=== PATIENT | male | born 1965 | race Caucasian/White ===

== ENCOUNTER 2020-11-10 09:34 | Outpatient (REF) | payer OTHER, SELFPAY | END 2020-11-10 09:35 | disposition home or self-care (01) | LOC: HO.LAB 09:34 | PROVIDERS: Visit Provider Internal Medicine | DX: Z20.822 Contact with and (suspected) exposure to COVID-19 (principal) | CPT/HCPCS: C9803; U0003; U0005 ==

== ENCOUNTER 2023-04-12 08:48 | Outpatient (REF) | payer SELFPAY ==
[2023-04-13 11:29] LABS: Free Prostate Spec Ag 0.5 ng/mL; Percent Free Prostate Spec Ag 38 % (calc) (>25); Prostate Specific Ag Total 1.3 ng/mL (< OR = 4.0)
[2023-04-13 23:54] LABS: Trichomonas vag. RNA Ur Male NOT DETECTED (NOT DETECTED)
== END 2023-04-12 08:49 | disposition home or self-care (01) ==
LOC: HO.HHCL 08:48
PROVIDERS: Visit Provider Internal Medicine
DX: Z12.5 Encounter for screening for malignant neoplasm of prostate (principal); R39.9 Unspecified symptoms and signs involving the genitourinary system
CPT/HCPCS: 36415; 84154; 87086; 87661

== ENCOUNTER 2023-04-18 11:50 | Outpatient (REF) | payer OTHER, SELFPAY ==
[2023-04-18 13:16] LABS: MANUAL DIFF FLAG NO
[2023-04-18 13:19] LABS: Basophils Percent Auto 0.5 % (0-2); Eosinophils Absolute Auto 0.1 X10*3/uL (0.0-0.4); Eosinophils Percent Auto 0.9 % (0-4); Hematocrit 47.6 % (42.0-52.0); Hemoglobin 15.8 g/dl (14.0-18.0); Imm Gran Abs Auto 0.01 X10*3/uL (0.00-0.03); Imm Gran Pct Auto 0.2 % (0.0-0.4); Lymphocytes Absolute Auto 2.2 X10*3/uL (1.2-4.9); Lymphocytes Percent Auto 33.1 % (20-40); Mean Corpuscular HGB Conc 33.2 g/dl (31.0-36.0); Mean Corpuscular Hemoglobin 28.5 pg (27.0-33.0); Mean Corpuscular Volume 85.9 fL (80.0-98.0); Mean Platelet Volume 9.7 fL (9.4-12.4); Monocytes Absolute Auto 0.7 X10*3/uL (0.1-1.2); Monocytes Percent Auto 10.8 % (2-11); Neutrophils Absolute Auto 3.6 x10*3/uL (2.0-8.3); Neutrophils Percent Auto 54.5 % (45-73); Platelet Count 237 X10*3/uL (160-400); Red Blood Count 5.54 X10*6/uL (4.60-5.80); White Blood Count 6.7 X10*3/uL (4.8-10.8)
[2023-04-18 14:27] LABS: Anion Gap 11 (12-20); Blood Urea Nitrogen 16 mg/dL (9-16); Calcium 10.4 mg/dL (8.4-10.2); Carbon Dioxide 29 mmol/L (22-29); Chloride 104 mmol/L (96-108); Estimated Glomerular Filt Rate > 60; Glucose Random 86 mg/dL (60-115); Magnesium 2.1 mg/dL (1.6-2.6); Sodium 140 mmol/L (135-145)
[2023-04-18 14:50] LABS: Vitamin B12 470 pg/mL (200-900)
== END 2023-04-18 11:51 | disposition home or self-care (01) ==
LOC: HO.HHCL 11:50
PROVIDERS: Visit Provider Nurse Practitioner Primary Care
DX: R20.0 Anesthesia of skin (principal); R25.2 Cramp and spasm
CPT/HCPCS: 36415; 80048; 82607; 83735; 85025

== ENCOUNTER 2023-07-04 15:12 | Outpatient (REF) | payer OTHER, SELFPAY ==
[2023-07-04 16:27] LABS: Anion Gap 12 (12-20); Blood Urea Nitrogen 12 mg/dL (9-16); Carbon Dioxide 29 mmol/L (22-29); Chloride 101 mmol/L (96-108); Estimated Glomerular Filt Rate > 60; Glucose Random 88 mg/dL (60-115); Potassium 3.8 mmol/L (3.3-5.1); Sodium 138 mmol/L (135-145)
== END 2023-07-04 15:13 | disposition home or self-care (01) ==
LOC: HO.HHCL 15:12
PROVIDERS: Visit Provider Nurse Practitioner Primary Care
DX: E83.52 Hypercalcemia (principal)
CPT/HCPCS: 36415; 80048

== ENCOUNTER 2023-07-12 13:45 | Outpatient (AMB) | payer OTHER, SELFPAY ==
--- NOTE | 2023-07-12 14:09 | MHC.OFFVIS ---
Intake Vital Signs 07/12/23 14:19 Height 5 ft 4 in Weight 181 lb BMI 31.1 Intake Visit Reasons: N/P B/L knee pain Intake Note: Angelo is a 58 year old male who presents today as a new patient for a evaluation of his bilateral knee pain, last inj 05/30/19. No hx of injury. Patient reports ongoing pain for many of years. He states that he finds relief with getting the cortisone injections. His last injections gave him about 2 years of relief. Pain is worse on the left knee than the right. He expresses that the pain is worse when he is using the stairs, kneeling down. Allergies lisinopril [LISINOPRIL] Allergy (Unknown, Verified 07/12/23 14:15) ANGIOEDEMA From TUBERCULIN PPD ANGELA TEST Allergy (Unknown, Uncoded 12/13/19 16:27) UNKNOWN HPI N/P B/L knee pain HPI Details 58-year-old male who presents in the office today, as a new patient, for an evaluation of bilateral knee pain. Patient has cortisone injections in 05/30/2019, which gave him relief for about 2 years. Denies any known injury. He reports ongoing pain for many years. He states the pain is worse in the left knee than the right. He reports increased pain with stairs and kneeling down. [facility], [facility] Social History (Updated 07/12/23 @ 14:18 by Marian Avila) Alcohol intake: never Patient Tobacco Use Status: Never used Tobacco Current occupational status: employed Current occupation: automobile mechanic supervisor Review of Systems Const All systems reviewed & are unremarkable except as noted in HPI and below Physical Exam Vital Signs: BMI result Body Mass Index 31.1 Const General: cooperative, healthy appearing and no acute distress Resp Effort & Inspection: normal respiratory effort and able to speak in complete sentences Cardio Rate: regular rate Peripheral pulses: Peripheral pulses 2+ throughout GI Palpation (GI): Soft to palpation Skin Lesions: no lesions Rashes: no rashes Extrem Other: Bilateral knees: Normal to inspection. No ecchymosis, erythema, or joint effusion. No tenderness to palpation along the medial or lateral joint lines. Full knee extension and flexion. Crepitus felt with ROM. NVI. Office Procedures Joint Injection/Drain Joint Injection/Drain Primary Site: right knee Secondary Site: left knee Prep: site was prepped using aseptic technique, ethochloride spray was applied and injection warnings given Injected: 80 mg of, DepoMedrol, with 8 mL of (2% plain lido ) and in the joint Approach Used: anterolateral Procedure: The patient tolerated the procedure well, but had some pain with the injection and there was some relief with the local anesthesia Coding - Large joint Procedure code (CPT) selection complete Assessment & Plan Assessment & Plan (1) Patellofemoral arthritis of right knee: Code(s): M17.11 - Unilateral primary osteoarthritis, right knee (2) Patellofemoral arthritis of left knee: Code(s): M17.12 - Unilateral primary osteoarthritis, left knee Plan Mr. Dhaliwal is a 58-year-old male who presents in the office today, as a new patient, for an evaluation of bilateral knee pain. Patient has cortisone injections in 05/30/2019, which gave him relief for about 2 years. Denies any known injury. He reports ongoing pain for many years. He states the pain is worse in the left knee than the right. He reports increased pain with stairs and kneeling. The patient was offered a cortisone injection in the bilateral knees with 80 mg of DepoMedrol. The patient was explained the risk, benefits, and alternatives to receiving this injection. After receiving consent for the injection, the patient had the procedure done while in the office today. The patient tolerated the procedure well with no complications. The patient has had relief with the injections in the past. He does not have a history of diabetes mellitus. Follow up will be PRN, or sooner if needed. X-rays of the bilateral knees which were obtained while in the office today and were reviewed by me, Vidhi Lugo PA-C, revealed patellofemoral arthritis, bilaterally. Orders: Orders XR knee standing BI Today M25.569 - Pain in unspecified knee Patient Instructions: Scribed by Yuki Purcell medical records coder, for Vidhi Lugo PA-C on 07/12/2023 at 1:54 pm, EST. Coding Level of Care Code New Pt Level 4 (21168) Diagnoses Patellofemoral arthritis of right knee M17.11 Patellofemoral arthritis of left knee M17.12 CPT Codes Coding - Large joint: 63719 - Large joint ([id number])
[2023-07-12 14:19] VITALS: BMI 31.1
== END 2023-07-12 14:57 | disposition home or self-care (01) ==
PROVIDERS: Visit Provider Physician Assistant
DX: M17.0 Bilateral primary osteoarthritis of knee (principal)
CPT/HCPCS: 20610; 99204

== ENCOUNTER 2023-07-12 14:58 | Outpatient (REF) | payer OTHER, SELFPAY ==
--- NOTE | ~2023-07-12 | XR_ITS ---
EXAMINATION: XR AP STANDING BILATERAL KNEES CLINICAL INFORMATION: Pain in unspecified knee. TECHNIQUE: AP standing, lateral and sunrise views of each knee. COMPARISON: Right knee 05/24/2019. Bilateral knees 08/17/2016. FINDINGS: RIGHT KNEE: Compartment spaces are maintained. Trace joint effusion. Tiny posterior patellar osteophytes. LEFT KNEE: Trace joint effusion. Compartment spaces are preserved. Tiny posterior patellar osteophytes. XR/XR knee LT 3V IMPRESSION: Mild degenerative changes in the bilateral knees.
--- NOTE | ~2023-07-12 | XR_ITS ---
EXAMINATION: XR AP STANDING BILATERAL KNEES CLINICAL INFORMATION: Pain in unspecified knee. TECHNIQUE: AP standing, lateral and sunrise views of each knee. COMPARISON: Right knee 05/24/2019. Bilateral knees 08/17/2016. FINDINGS: RIGHT KNEE: Compartment spaces are maintained. Trace joint effusion. Tiny posterior patellar osteophytes. LEFT KNEE: Trace joint effusion. Compartment spaces are preserved. Tiny posterior patellar osteophytes. XR/XR knee RT 3V IMPRESSION: Mild degenerative changes in the bilateral knees.
== END 2023-07-12 14:59 | disposition home or self-care (01) ==
LOC: HO.HOSX 14:58
PROVIDERS: Visit Provider Physician Assistant
DX: M17.0 Bilateral primary osteoarthritis of knee (principal)
CPT/HCPCS: 20610; 73562; J1010; J1040

== ENCOUNTER 2024-03-26 14:52 | Outpatient (REF) | payer OTHER, SELFPAY ==
--- NOTE | ~2024-03-26 | XR_ITS ---
CLINICAL HISTORY: Chronic low back pain 5 views lumbar spine Comparison: None Findings: Normal vertebral body alignment. No acute fractures or dislocation. There is multiple level degenerative disc and facet change. IMPRESSION: No acute findings. This document has been electronically signed by: Arnaud Damico MD on 03/30/2024 18:52:45
--- NOTE | ~2024-03-26 | XR_ITS ---
CLINICAL HISTORY: M25.569 - Pain in unspecified knee 1 view bilateral knee Comparison: None Findings: No fractures or dislocations. No significant loss of joint space, osteophytes, or erosions. No joint effusion. No radiopaque foreign body. IMPRESSION: 1. No acute findings. This document has been electronically signed by: Arnaud Damico MD on 03/30/2024 17:44:15
== END 2024-03-26 14:53 | disposition home or self-care (01) ==
LOC: HO.XRAY 14:52
PROVIDERS: PCP Nurse Practitioner Primary Care; Visit Provider Internal Medicine Geriatric Medicine
DX: M25.569 Pain in unspecified knee (principal); M54.42 Lumbago with sciatica, left side; G89.29 Other chronic pain
CPT/HCPCS: 72110; 73565

== ENCOUNTER → 2024-03-26 14:57 | Outpatient (BNV) | payer OTHER, SELFPAY | PROVIDERS: PCP Nurse Practitioner Primary Care; Visit Provider Specialist | DX: M54.42 Lumbago with sciatica, left side (principal); M25.562 Pain in left knee; M25.561 Pain in right knee | CPT/HCPCS: 72110; 73565 ==

== ENCOUNTER 2024-08-13 09:31 | Outpatient (REF) | payer OTHER, SELFPAY ==
--- OUTSIDE RECORDS SUMMARY | 2024-08-13 09:50 | XMS_ITS | Encounter Summary ---
Author Organization [email or web address] Address [address] [place] [address] Care Team Providers Care It Risk And Assurance Senior Manager Name Role Phone Jamila Conrad Primary Care Provider [phone] Reason for Visit * Reason Comments Med Refill Encounter Details Date Type Department Care Team ([facility] st Contact Info) Description 09/21/2023 Refill [facility] [address] [place], [place] [id number] Jamila Conrad ANP [address] [place] [address] Essential hypertension Social History Tobacco Use Types Packs/Day Years Used Date Smoking Tobacco: Never Passive Smoke Exposure: Never Smokeless Tobacco: Never Alcohol Use Standard Drinks/Week Comments Never 0 (1 standard drink = 0.6 oz pur e alcohol) Depression Answer Date Recorded Patient Health Questionnaire-9 Score 0 07/20/2022 Housing Stability Answer Date Recorded What is your housing situation today? I have [place] 01/20/[address] you li ve. Do you have problems with any of the following? None of the above 01/20/2023 Food Insecurity Answer Date Recorded Within the past 12 months, y ou worried that your food would run out before you got money to buy more: Never True 01/20/2023 Within the past 12 months,th e food you bought just didn't last and you didn't have enough money to get more: Never True Transportation Answer Date Recorded In the past 12 months, has l ack of transportation kept you from medical appts, meetings, work or from getting things needed for daily living? No 01/20/2023 Utilities Answer Date Recorded In the past 12 months, has t he electric, gas, oil or water company threatened to shut off services in your home? No 01/20/2023 Depression Answer Date Recorded Patient Health Questionnaire-2 Score 0 07/20/2022 Sex and Gender Information Value Date Recorded Sex Assigned at Male 01/25/2022 10:14 AM EDT Legal Sex Male 10:14 AM EDT Gender Identity Male 01/25/2022 10:14 AM EDT Sexual Orientation Straight 01/25/2022 10 :14 AM EDT documented as of this encounter Plan of Treatment Upcoming Encounters Date Type Department Care Team (Late st Contact Info) Description 09/26/2024 3:00 PM EDT Office Visit [facility] [address] [place] [address] Jamila Conrad ANP [address] [place] [address] 10/23/2024 3:00 PM EDT Office Visit [facility] [address] [place] [address] Axel, Maria Isabel, OD [address] [place] [address] 12/12/2024 3:00 PM EDT Office Visit [facility] [address] [place] [address] Elizabet Guido documented as of this encounter Visit Diagnoses Diagnosis Essential hypertension Unspecified essential hypertension documented in this encounter Additional Health Concerns Assessment Noted Time PHQ-9 Depression Total Score: 0 07/21/19 23 1:42 PM EDT documented as of this encounter Care Teams It Risk And Assurance Senior Manager Relationship Specialty Start Date End Date Jamila Conrad ANP [address] [place] [address] PCP - General Family Medicine 11/18/20 documented as of this encounter
--- OUTSIDE RECORDS SUMMARY | 2024-08-13 09:50 | XMS_ITS | Encounter Summary ---
Author Organization [employer] Address [address] [place] [address] Care Team Providers Care Post Secondary Professional Name Role Phone Jamila Conrad Primary Care Provider [phone] Encounter Details Date Type Department Care Team (Latest Contact Info) Description 10/17/2020 Abstract [facility] Dental, Provider, DDS Social History Tobacco Use Types Packs/Day Years Used Date Smoking Tobacco: Never Assessed Sex and Gender Information Value Date Recorded Sex Assigned at Male 01/25/2022 10:14 AM EDT Legal Sex Male 10:14 AM EDT Gender Identity Male 01/25/2022 10:14 AM EDT Sexual Orientation Straight 01/25/2022 10 :14 AM EDT documented as of this encounter Plan of Treatment Upcoming Encounters Date Type Department Care Team (Late st Contact Info) Description 09/26/2024 3:00 PM EDT Office Visit [facility] [address] [place] [address] Jamila Conrad, ANP [address] [place] [address] 10/23/2024 3:00 PM EDT Office Visit [facility] [address] [place] [address] Maria Isabel Reyna, OD [address] [place] [address] 12/12/2024 3:00 PM EDT Office Visit [facility] [address] [place] [address] Elizabet Guido documented as of this encounter Visit Diagnoses Not on filedocumented in this encounter Care Teams Post Secondary Professional Relationship Specialty Start Date End Date Jamila Conrad ANP [address] [place] [address] PCP - General Family Medicine 11/18/20 documented as of this encounter
--- OUTSIDE RECORDS SUMMARY | 2024-08-13 09:50 | XMS_ITS | Encounter Summary ---
Author Organization [employer] Address [address] [place] [address] Care Team Providers Care Director Of Consumer Marketing Name Role Phone Jamila Conrad Primary Care Provider [phone] Reason for Visit * Reason Onset Date Comments clarification needed 06/27/2024 Encounter Details Date Type Department Care Team ([facility] Contact Info) Description 06/27/2024 Telephone [facility] [address] [place] [address] Jamila Conrad ANP [address] [place] [address] clarification needed Social History Tobacco Use Types Packs/Day Years Used Date Smoking Tobacco: Never Passive Smoke Exposure: Never Smokeless Tobacco: Never Alcohol Use Standard Drinks/Week Comments Never 0 (1 standard drink = 0.6 oz pur e alcohol) Depression Answer Date Recorded Patient Health Questionnaire-9 Score 3 05/31/2024 Patient Health Questionnaire-9 Score 3 05/31/2024 Last PHQ-9: Questionnaire Data Not on file 0 05/31/2024 Housing Stability Answer Date Recorded What is [...] Date Recorded Patient Health Questionnaire-2 Score 0 05/31/2024 Internet Access Answer Date Recorded Internet Access Q1 Yes 11/28/2023 Internet Access Q2 Not on file 11/28/2023 Sex and Gender Information Value Date Recorded Sex Assigned at Male 01/25/2022 10:14 AM EDT Legal Sex Male 10:14 AM EDT Gender Identity Male 01/25/2022 10:14 AM EDT Sexual Orientation Straight 01/25/2022 10 :14 AM EDT documented as of this encounter Miscellaneous Notes * Telephone Encounter - Austin Foster - 06/29/2024 9:58 AM EDT TC from [employer] reports received Two sleep study Prior auth with 2 different CPT codes. Caller inform they would like clarification on which CPT code will be used. PLEASE return call [phone] * Telephone Encounter - Waldo Howard - 06/27/2024 4:33 PM EDT TC from [employer] reports received two sleep study Prior auth with two different CPT codes. Would like clarification on which CPT code you would like to use. Ticket number : [id number] documented in this encounter Plan of Treatment Upcoming Encounters Date Type Department Care Team (Late st Contact Info) Description 09/26/2024 3:00 PM EDT Office Visit [facility] [address] [place] [address] Jamila Conrad ANP [address] [place] [address] 10/23/2024 3:00 PM EDT Office Visit [facility] [address] [place] [address] Axel, Maria Isabel, OD [address] [place] [address] 12/12/2024 3:00 PM EDT Office Visit [facility] [address] [place] [address] Elizabet Guido documented as of this encounter Visit Diagnoses Not on filedocumented in this encounter Additional Health Concerns Assessment Noted Time PHQ-9 Depression Total Score: 3 06/01/19 25 2:47 PM EST documented as of this encounter Care Teams Director Of Consumer Marketing Relationship Specialty Start Date End Date Jamila Conrad ANP [address] [place] [address] PCP - General Family Medicine 11/18/20 documented as of this encounter
--- OUTSIDE RECORDS SUMMARY | 2024-08-13 09:51 | XMS_ITS | Clinical Summary ---
Author Organization [employer] Address [address] [place] [address] Care Team Providers Care Diamond Powder Technician Name Role Phone Jamila Conrad JESSEE Primary Care Provider [phone] Allergies Active Allergy Reactions Criticality Noted Date Comments Lisinopril Angioedema High 03/30/2013 Medications atorvastatin (Lipitor) 40 MG tablet Take 1 tablet by mouth 1 (one) time each day. 022 Active Loratadine 10 MG capsule Take 1 capsule by mouth if needed each day. 022 Active sodium chloride ([place]) 0.65 % nasal spray 1-2 spray on each nostril every 2-3 hours as needed for nasal congestion 022 Active Blood Pressure Monitoring (Blood Pressure Monitor/L Cuff) [facility] check blood pressure once daily 014 Active fluticasone (Flonase) 50 MCG/ACT nasal sprayIndications:Non-s easonal allergic rhinitis, unspecified trigger Administer 2 sprays into each nostril if needed each day for allergies or rhinitis. 16 g 2 024 Active hydroCHLOROthiazide (HYDRODiuril) 25 MG tabletIndications:Esse ntial hypertension TAKE 1 TABLET BY MOUTH EVERY DAY IN THE MORNING 90 tablet 2 024 Active cholecalciferol VITAMIN D (Vitamin D-3) 50 MCG (1999) capsule TAKE 1 CAPSULE BY MOUTH EVERY DAY 90 capsule 1 024 Active amLODIPine (Norvasc) 5 MG tabletIndications:Esse ntial hypertension TAKE 1 TABLET BY MOUTH EVERY DAY 90 tablet 2 024 Active Aspirin Low Dose 81 MG EC tabletIndications:Mixe d hypercholesterolemia and hypertriglyceridemia TAKE 1 TABLET BY MOUTH EVERY DAY 90 tablet 1 025 Active lidocaine (Lidoderm) 5 % patch PLACE 1 PATCH TO SKIN ONCE DAILY AND WEAR FOR UP TO 12 HOURS 30 patch 1 025 Active celecoxib (CeleBREX) 100 MG capsuleIndications:Chr onic midline low back pain with left-sided sciatica TAKE 2 CAPSULES ONCE AND THEN 1 CAPSULE TWICE A DAY NEEDED FOR BACK PAIN 60 capsule 025 Active celecoxib (CeleBREX) 100 MG capsuleIndications:Chr onic midline low back pain with left-sided sciatica TAKE 2 CAPSULES ONCE AND THEN 1 CAPSULE TWICE A DAY NEEDED FOR BACK PAIN 60 capsule 025 08/06 Discontinued Active Problems Problem Noted Date Diagnosed Date Aphthous ulcer 05/01/2024 Oral lesion 10/24/2023 Dental abscess 09/28/2023 Periodontal disease 02/01/2023 Dental calculus 02/01/2023 Missing teeth, acquired 02/01/2023 Generalized gingival recession, moderate 023 Seasonal allergies 01/20/2023 01/20/2023 Mixed anxiety and depressive disorder 07/20/2022 Chronic midline low back pain with left-sided sc iatica 07/20/2022 Overview (01/21/2023): Radiating to upper back and sometimes to left leg. Lidocaine patches not approved by insurance, will request PA. Accepts PT referral Heat, stretching Naproxen 500mg PRN, monitor BP, take w/ food Cyclobenzaprine 5mg PRN up to TID Mixed hypercholesterolemia and hypertriglyceride kamilla 03/23/2022 Overview (01/21/2023): Atorvastatin 40mg ASA 81mg Lifestyle recommendations to improve heart health & lower cholesterol: be as active as able, ideally exercise 150min moderate intensity or 75min vigorous intensity weekly; increase intake of vegetables, fruits, whole grains, fish. Try to minimize intake of sugary or greasy food and drink. Use olive oil or vegetable, peanut, canola, or similar oil for cooking. Decrease or stop drinking alcohol if you drink, quit/decrease smoking if you smoke. Seasonal allergic rhinitis 08/25/2017 Allergic conjunctivitis 08/25/2017 01/21/20 23 Pharyngitis 08/25/2017 01/20/2023 Benign prostatic hyperplasia 01/12/2012 Overview (01/21/2023): PSA 0.Apr Elevated uric acid in blood 01/12/2012 Essential hypertension 01/12/2012 Overview (01/21/2023): Amlodipine 5mg daily hydrochlorothiazide 25mg daily Low salt diet, regular exercise Call clinic if BP is frequently >150/90 Go to ED/call 911 if > 170/100 and having sx such as FONG, visual changes, chest pain, SOB Last renal function: Lab Results Component Value Date GLUCOSE 96 05/10/2022 NA 139 05/10/2022 K 4.1 05/10/2022 CO2 33 (H) 05/10/2022 CL 100 05/10/2022 BUN 12 05/10/2022 CREATININE 1.04 05/10/2022 05/10/22 Alb:Cr 2 [place]: positive 01/12/2012 01/20/2023 Obesity 01/12/2012 01/20/2023 Encounters Date Type Department Care Team Description 08/04/2024 [facility] [place] [address] Jamila Conrad ANP Chronic midline low back pain with left-sided sciatica 07/18/2024 Telephone [facility] [place] [address] Jamila Conrad ANP Call Back Request 07/06/2024 [facility] [place] [address] Jamila Conrad ANP Chronic midline low back pain with left-sided sciatica 07/05/2024 Telephone [facility] [place] [address] Jamila Conrad ANP September recall 06/27/2024 Telephone [facility] [place] [address] Jamila Conrad ANP clarification needed 05/31/2024 2:00 PM EST Office [facility] [place] [address] Jamila Conrad ANP Chronic midline low back pain with left-sided sciatica (Primary Dx); Witnessed episode of apnea; Sleep disturbance; Essential hypertension 05/31/2024 Travel 05/26/2024 Refill [facility] [address] [place] [address] Jamila Conrad ANP 05/22/2024 Patient Outreach [facility] [address] [place], [place] [phone] Jamila Conrad ANP Pre-visit Planning (SDOH Screening negative and Tobacco screening negative) 05/19/2024 Refill [facility] [address] [place] [address] Jamila Conrad ANP Mixed hypercholesterolemia and hypertriglyceridemia from Last 3 Months Immunizations Immunization Administration Dates Next Due Hep B, adult 02/11/2011,06/16/2010,05/01/2010 Influenza Injectable Quadriv alant Preservative Free IIV4 MDCK 12/12/2021,01/06/2019,12/11/2017 Influenza injectable quadriv alent IIV4 with preservative 06/17/2016,01/06/2015 Influenza injectable quadriv alent preservative free 01/21/2023,12/09/2020,12/15/2019,2016 Influenza, IIV3, injectable 02/11/2011 Influenza, Injectable, MDCK, preservative free 12/03/2023 Moderna Covid-19 Vaccine 6+ Bivalent 07/20/2022 TD (adult), 2 Lf tetanus tox oid, preservative free, adsorbed 03/12/1996 Tdap 07/04/2023 Zoster, Recombinant 06/11/2023,03/12/2023 Family History Medical History Relation Name Comments Heart disease Brother Hypertension Brother Prostate cancer Father Prostate cancer Father's Brother Relation Name Status Comments Brother Father Father's Brother Social History Tobacco Use Types Packs/Day Years Used Date Smoking Tobacco: Never Passive Smoke Exposure: Never Smokeless Tobacco: Never Tobacco Cessation:Counseling Given: Not Answered Alcohol Use Standard Drinks/Week Comments Never 0 [...] Orientation Straight 01/25/2022 10 :14 AM EDT Last Filed Vital Signs Vital Sign Reading Time Taken Comments Blood Pressure 133/89 05/31/2024 2:08 PM EST Pulse 91 05/31/2024 2:08 PM EST Temperature 36.9 ??C (98.4 ??F) 05/31/2024 2:08 PM ES T Respiratory Rate 20 05/31/2024 2:08 PM EST Oxygen Saturation 98% 05/31/2024 2:08 PM EST Inhaled Oxygen Concentration - - Weight 83.9 kg (185 lb) 05/31/2024 2:08 PM EST Height 162.6 cm (5' 4 ) 05/31/2024 2:08 PM EST Body Mass Index 31.76 05/31/2024 2:08 PM EST Plan of Treatment Upcoming Encounters Date Type Department Care Team (Late st Contact Info) Description 09/26/2024 3:00 PM EDT Office Visit [facility] [address] [place], [place] [phone] Jamila Conrad, ANP [address] [place] [address] 10/23/2024 3:00 PM EDT Office Visit [facility] [address] [place], [place] [phone] Axel, Maria Isabel, OD [address] [place], [place] [phone] 12/12/2024 3:00 PM EDT Office Visit [facility] [address] [place], [place] [phone] Elizabet Guido Health Maintenance Due Date Last Done Comments CT Colonography 1963 FIT DNA/Cologuard 1963 FIT 1963 FOBT 1963 HIV Screening 1965 Sigmoidoscopy 1963 Hepatitis C Screening 06/23/1981 Dental Oral Exam 10/30/2024 05/01/2024, 09/2022, 10/17/2020, Additional history exists Dental Prophylaxis 10/30/2024 05/01/2024, 0 10/24/2023, 02/01/2023, Additional history exists Dental X-Ray: Bitewings 05/02/2025 05/01/19 25, 02/01/2023, 10/17/2020, Additional history exists SDOH Screening 05/22/2025 05/22/2024 Alcohol/Substance Use Screening 05/31/2025 05/31/2024 COVID-19 Vaccine ( season) 2025 07/20/2022, 03/12/2021, 06/28/2020, Additional history exists Postponed from 11/27/2023 (Patient Refused) Depression Screening 05/31/2025 05/31/2024, 06/01/19 Tobacco Screening 06/23/2025 06/23/2024 Dental X-Ray: Full Mouth 09/28/2026 024, 10/17/2020, 06/17/2016, Additional history exists Colonoscopy 04/18/2027 04/18/2017 Colorectal Cancer Screening 04/18/2027 Lipid Panel 05/10/2027 05/10/2022, 05/26/2020 DTaP/Tdap/Td Vaccines (2 - Td or Tdap) 07/03/2033 07/04/2023, 03/12/1996 RSV Patients and Patients Aged 60 years or older (1 - 1-dose 75+ series) 06/23/2038 Hepatitis B Vaccines Completed 02/11/2011, 06/16/2010, 05/01/2010 Zoster Vaccines Completed 06/11/2023, 03/12/2023 Influenza Vaccine Completed 12/03/2023, , 12/12/2021, Additional history exists Pneumococcal Vaccine: 50+ Years Completed 02/27/2024 HIB Vaccines Aged Out No longer eligi ble based on patient's age to complete this topic HPV Vaccines Aged Out No longer eligi ble based on patient's age to complete this topic Hepatitis A Vaccines Aged Out No long er eligible based on patient's age to complete this topic IPV Vaccines Aged Out No longer eligi ble based on patient's age to complete this topic Meningococcal B Vaccine Aged Out No l onger eligible based on patient's age to complete this topic Meningococcal Vaccine Aged Out No carter elizabeth eligible based on patient's age to complete this topic RSV under 20 months Aged Out No longe r eligible based on patient's age to complete this topic Rotavirus Vaccines Aged Out No longer eligible based on patient's age to complete this topic Procedures Procedure Name Priority Date/Time Associated Diagnosis Comments PROPHYLAXIS - ADULT Routine 05/01/2024 8 :45 AM EST BITEWINGS - 4 RADIOGRAPHIC IMAGES Routine 05/01/2024 8:45 AM EST PERIODIC ORAL EVALUATION - ESTABLISHED PATIENT Routine 05/01/2024 8:45 AM EST PANORAMIC RADIOGRAPHIC IMAGE Routine 09/28/2023 10:30 AM EDT LIPID PANEL, STANDARD Routine 05/10/2022 8:26 AM EST HM COLONOSCOPY Routine 04/18/2017 from Last 3 Months or Most Recently Relevant to Health Maintenance Results * Lipid Panel, Standard (05/10/2022 8:26 AM EST) Cholesterol, Total 126 <200 mg/dL [facility] HDL Cholesterol 42 > OR = 40 mg/dL [facility] Triglycerides 131 <150 mg/dL [facility] LDL Cholesterol 63 mg/dL (calc) [facility] Comment: Reference range: <100 Desirable range <100 mg/dL for primary prevention; ?? <70 mg/dL for patients with CHD or diabetic patients with > or = 2 CHD risk factors. LDL-C is now calculated using the Froilan calculation, which is a validated novel method providing better accuracy than the Friedewald equation in the estimation of LDL-C. Jt SS et al. MEHNAZ. 2013;310(19): 9930-3435 (http://education.Sustainability Roundtable/faq/DDS373) Chol/HDLC Ratio 3.0 <5.0 (calc) [facility] Non-HDL Cholesterol 84 <130 mg/dL (calc) [facility] Comment: For patients with diabetes plus 1 major ASCVD risk factor, treating to a non-HDL-C goal of <100 mg/dL (LDL-C of <70 mg/dL) is considered a therapeutic option. 05/10/2022 8:26 AM EST 05/10/2022 8:27 AM EST Narrative [facility] - 05/11/2022 3:53 AM EST FASTING:YES FASTING: YES [facility] LAB BLOOD ORDERABLES Final Resul t [facility] [address], [facility], [place] [address] [facility] [place] [facility] [address], ([address]) [place] [address] * Colonoscopy (04/18/2017) Colonoscopy Normal Normal Historical Provider HEALTH MAINTENANCE Final Result from Last 3 Months or Most Recently Relevant to Health Maintenance Insurance [facility] - HSN PARTIAL (MEDICAID) Care Teams Diamond Powder Technician Relationship Specialty Start Date End Date Jamila Conrad ANP [address] [place] [phone] PCP - General Family Medicine 11/18/20
[2024-08-13 11:25] LABS: Hematocrit 46.5 % (42.0-52.0); Hemoglobin 15.5 g/dl (14.0-18.0)
[2024-08-13 11:43] LABS: Creatinine Urine 179.04 mg/dL; Microalbumin Urine < 5.0 mg/L
[2024-08-13 11:59] LABS: Vitamin B12 482 pg/mL (200-900)
[2024-08-13 12:07] LABS: Alanine Aminotransferase 34 U/L (0-40); Alkaline Phosphatase 87 U/L (39-117); Anion Gap 11 (12-20); Aspartate Amino Transferase 31 U/L (5-37); Bilirubin Total 0.9 mg/dL (0.0-1.0); Blood Urea Nitrogen 12 mg/dL (9-16); Calcium 9.1 mg/dL (8.4-10.2); Carbon Dioxide 27 mmol/L (22-29); Chloride 105 mmol/L (96-108); Cholesterol 218 mg/dL (<200); Estimated Glomerular Filt Rate > 60; Glucose Random 96 mg/dL (60-115); HDL Cholesterol 38 mg/dL (>40); LDL Cholesterol Calculated 134 mg/dL (<100); Potassium 3.6 mmol/L (3.3-5.1); Sodium 139 mmol/L (135-145); TSH reflex Free T4 2.16 uIU/mL (0.32-4.0); Total Protein 7.2 g/dL (6.5-8.0); Triglycerides 234 mg/dL (<150)
== END 2024-08-13 09:32 | disposition home or self-care (01) ==
LOC: HO.HHCL 09:31
PROVIDERS: Visit Provider Nurse Practitioner Primary Care
DX: E78.2 Mixed hyperlipidemia (principal); I10 Essential (primary) hypertension; G47.9 Sleep disorder, unspecified; R06.81 Apnea, not elsewhere classified
CPT/HCPCS: 36415; 80053; 80061; 82570; 82607; 84443; 85014; 85018

== ENCOUNTER 2024-09-26 11:18 | Outpatient (REF) | payer OTHER, SELFPAY | END 2024-09-26 11:19 | disposition home or self-care (01) | LOC: HO.HHCL 11:18 | PROVIDERS: PCP Nurse Practitioner Primary Care; Visit Provider Nurse Practitioner Primary Care | DX: E55.9 Vitamin D deficiency, unspecified (principal) | CPT/HCPCS: 36415; 82306 ==